=== PATIENT | male | born 1955 | race Caucasian/White ===

== ENCOUNTER 2019-04-11 20:57 | Observation (INO) ==
[2019-04-11 21:49] LABS: Eosinophils % 1.1 %; Immature Granulocytes % 1.1 % (0-4); Lymphocytes # 0.3 K/mcL (0.6-4.6); Lymphocytes % 17.7 %; Mean Corpuscular HGB Conc 36.9 g/dL (31.6-35.5); Mean Corpuscular Hemoglobin 45.1 pg (28.0-33.3); Monocytes # 0.1 K/mcL (0.0-1.3); Monocytes % 3.9 %; Neutrophils # 1.4 K/mcL (1.6-8.9); Nucleated Red Blood Cells 1.7 /100 WBC (0); Red Blood Count 1.22 M/mcL (4.19-5.50); Red Cell Distribution Width 27.8 % (11.5-14.5); Segmented Neutrophils % 76.2 %; White Blood Count 1.8 K/mcL (4.3-11.1)
[2019-04-11 22:01] LABS: Mean Corpuscular Volume 122.1 fL (83.0-100.0); Platelet Count 74 K/mcL (140-400)
[2019-04-11 22:04] LABS: Hematocrit 14.9 % (37.5-50.1); Hemoglobin 5.5 g/dL (12.9-16.9)
[2019-04-11 22:05] LABS: Anisocytosis 3+ (Not Present); Macrocytosis Present (Not Present); Microcytosis Present (Not Present); Platelet Estimate Decreased (Normal)
[2019-04-11 22:06] LABS: Poikilocytosis 2+ (Not Present); Schistocytes 1+ (Not Present); Tear Drop Cells 1+ (Not Present)
[2019-04-11 22:07] LABS: % Iron Saturation 95 % (20-55); Iron 188 mcg/dL (65-175); Transferrin 142 mg/dL (203-362)
[2019-04-11 22:10] LABS: Alanine Aminotransferase 42 Units/L (7-52); Albumin 4.4 g/dL (3.5-5.7); Albumin/Globulin Ratio 2.8 (1.1-2.2); Alkaline Phosphatase 57 Units/L (34-104); Aspartate Amino Transferase 76 Units/L (13-39); BUN/Creatinine Ratio 29 (6-26); Bilirubin,Total 2.2 mg/dL (0.3-1.0); Blood Urea Nitrogen 24 mg/dL (8-23); Calcium 9.5 mg/dL (8.6-10.3); Carbon Dioxide 25 mEq/L (23-29); Chloride 110 mEq/L (98-107); Globulin 1.6 g/dL (2.4-3.5); Glucose 116 mg/dL (70-105); Osmolality,Calculated 295 (280-300); Potassium 3.7 mEq/L (3.5-5.1); Sodium 140 mEq/L (136-145); eGFR For African Americans > 60 (> 60); eGFR For Non-African Americans > 60 (> 60)
[2019-04-11 22:11] LABS: Troponin I < 0.03 ng/mL (< 0.04)
[2019-04-11 22:26] LABS: Hepatitis B Surface Antigen Nonreactive (Nonreactive)
[2019-04-11 22:32] LABS: Folate 12.9 ng/mL (3.0-16.0)
[2019-04-11 22:36] LABS: Vitamin B12 < 50 pg/mL (250-1100)
[2019-04-11 22:45] LABS: Bilirubin,Urine Negative (Negative); Blood,Urine Negative (Negative); Clarity,Urine Clear (Clear); Color,Urine Yellow (Yellow); Glucose,Urine (UA) Normal (Normal); Ketones,Urine Negative (Negative); Leukocyte Esterase,Urine Negative (Negative); Nitrite,Urine Negative (Negative); Protein,Urine Negative (Neg-Trace)
[2019-04-11 22:55] LABS: Hepatitis B Core IgM Nonreactive (Nonreactive); Hepatitis C Virus Antibody Nonreactive (Nonreactive)
[2019-04-11 22:57] LABS: Hepatitis A Antibody IgM Nonreactive (Nonreactive)
[2019-04-11 23:20] LABS: INR 1.2; Prothrombin Time 13.4 Seconds (9.4-12.1)
[2019-04-11 23:22] LABS: Activated Partial Thrombo Time 37.4 Seconds (26.0-36.0)
[2019-04-11] MEDS ORDERED: 0.9 % Sodium Chloride 500 ML ONE (23:49)
[2019-04-12] MEDS ORDERED: Isovue-370 500 ML BOTTLE IVP ONE (00:20)
[2019-04-12 01:43] LABS: Immature Reticulocyte % 13.9 % (11.0-38.0); Retculocyte # 0.02 M/mcL (0.05-0.10); Reticulocyte % 1.7 % (1.6-2.8)
[2019-04-12 01:51] LABS: Bilirubin,Direct 0.4 mg/dL (0.0-0.2); Bilirubin,Indirect 1.8 mg/dL (0.0-1.0); Lactate Dehydrogenase > 3600 Units/L (140-271)
[2019-04-12] MEDS ORDERED: Cyanocobalamin (B-12) 1,000 MCG/ML VIAL SQ ONE (02:19)
[2019-04-12] MEDS ORDERED: Naloxone 0.4 MG/ML INJ IVP PRN (03:13)
[2019-04-12] MEDS ORDERED: 0.9 % Sodium Chloride 250 ML ONE (03:51)
[2019-04-12 05:26] LABS: Eosinophils % 0.9 %
[2019-04-12 05:28] LABS: Basophils % 0.5 %; Hematocrit 17.9 % (37.5-50.1); Hemoglobin 6.5 g/dL (12.9-16.9); Immature Granulocytes % 1.4 % (0-4); Immature Platelets 3.9 % (1.1-6.1); Lymphocytes # 0.5 K/mcL (0.6-4.6); Lymphocytes % 23.2 %; Mean Corpuscular HGB Conc 36.3 g/dL (31.6-35.5); Mean Corpuscular Hemoglobin 39.6 pg (28.0-33.3); Mean Corpuscular Volume 109.1 fL (83.0-100.0); Monocytes # 0.1 K/mcL (0.0-1.3); Monocytes % 2.7 %; Neutrophils # 1.6 K/mcL (1.6-8.9); Nucleated Red Blood Cells 1.8 /100 WBC (0); Red Blood Count 1.64 M/mcL (4.19-5.50); Segmented Neutrophils % 71.3 %; White Blood Count 2.2 K/mcL (4.3-11.1)
[2019-04-12 05:34] LABS: Platelet Count 61 K/mcL (140-400)
[2019-04-12 05:43] LABS: Alanine Aminotransferase 40 Units/L (7-52); Albumin 4.1 g/dL (3.5-5.7); Albumin/Globulin Ratio 2.6 (1.1-2.2); Alkaline Phosphatase 55 Units/L (34-104); Aspartate Amino Transferase 77 Units/L (13-39); BUN/Creatinine Ratio 27 (6-26); Bilirubin,Total 2.1 mg/dL (0.3-1.0); Blood Urea Nitrogen 21 mg/dL (8-23); Calcium 9.3 mg/dL (8.6-10.3); Carbon Dioxide 27 mEq/L (23-29); Chloride 108 mEq/L (98-107); Globulin 1.6 g/dL (2.4-3.5); Glucose 103 mg/dL (70-105); Osmolality,Calculated 297 (280-300); Potassium 3.9 mEq/L (3.5-5.1); Sodium 142 mEq/L (136-145); Total Protein 5.7 g/dL (6.4-8.9); eGFR For African Americans > 60 (> 60); eGFR For Non-African Americans > 60 (> 60)
[2019-04-12 06:26] LABS: Tear Drop Cells 1+ (Not Present)
[2019-04-12 06:27] LABS: Macrocytosis Present (Not Present); Polychromasia 2+ (Not Present)
[2019-04-12 06:28] LABS: Schistocytes 1+ (Not Present)
[2019-04-12 06:33] LABS: Platelet Estimate Decreased (Normal)
[2019-04-12 08:01] LABS: Hematocrit 19.2 % (37.5-50.1); Hemoglobin 7.2 g/dL (12.9-16.9)
[2019-04-12] MEDS: Lisinopril-HCTZ 20-12.5mg TABLET PO SCH (09:29)
[2019-04-12] MEDS: Cyanocobalamin (B-12) 1,000 MCG/ML VIAL SQ SCH (09:29)
[2019-04-12 11:06] LABS: Hematocrit 20.6 % (37.5-50.1); Hemoglobin 7.3 g/dL (12.9-16.9); Mean Corpuscular HGB Conc 35.4 g/dL (31.6-35.5); Mean Corpuscular Hemoglobin 38.4 pg (28.0-33.3); Mean Corpuscular Volume 108.4 fL (83.0-100.0)
[2019-04-12 11:07] LABS: Platelet Count 68 K/mcL (140-400)
[2019-04-12 14:05] LABS: Hematocrit 22.1 % (37.5-50.1); Hemoglobin 8.2 g/dL (12.9-16.9)
[2019-04-12 20:24] LABS: Hemoglobin 7.3 g/dL (12.9-16.9)
[2019-04-13 05:26] VITALS: BP 105/71
[2019-04-13 06:51] LABS: Alanine Aminotransferase 36 Units/L (7-52); Albumin 3.9 g/dL (3.5-5.7); Alkaline Phosphatase 49 Units/L (34-104); Aspartate Amino Transferase 68 Units/L (13-39); BUN/Creatinine Ratio 25 (6-26); Bilirubin,Total 1.7 mg/dL (0.3-1.0); Blood Urea Nitrogen 21 mg/dL (8-23); Calcium 9.1 mg/dL (8.6-10.3); Carbon Dioxide 27 mEq/L (23-29); Chloride 109 mEq/L (98-107); Globulin 1.3 g/dL (2.4-3.5); Glucose 96 mg/dL (70-105); Osmolality,Calculated 293 (280-300); Potassium 3.7 mEq/L (3.5-5.1); Sodium 140 mEq/L (136-145); Total Protein 5.2 g/dL (6.4-8.9); eGFR For African Americans > 60 (> 60); eGFR For Non-African Americans > 60 (> 60)
[2019-04-13] MEDS: Lisinopril-HCTZ 20-12.5mg TABLET PO SCH (07:19)
[2019-04-13] MEDS: Cyanocobalamin (B-12) 1,000 MCG/ML VIAL SQ SCH (07:20)
[2019-04-13 08:32] LABS: Hematocrit 20.3 % (37.5-50.1); Hemoglobin 7.3 g/dL (12.9-16.9); Mean Corpuscular Hemoglobin 38.4 pg (28.0-33.3); Mean Corpuscular Volume 106.8 fL (83.0-100.0); White Blood Count 2.4 K/mcL (4.3-11.1)
[2019-04-13 08:33] LABS: Platelet Count 72 K/mcL (140-400)
== END 2019-04-13 09:05 | disposition home or self-care (01) ==
LOC: 3ANU 20:57 → EMEROOARM 20:57 → 3ANU 04-12 00:43 → EMEROOARM 04-12 00:43 → 3ANU 04-12 03:20 → SUATTDRO 04-12 03:47
PROVIDERS: ADMIT Internal Medicine; ATTEND Family Medicine